=== PATIENT | female | born 1995 | race Caucasian/White ===

== ENCOUNTER 2019-07-17 14:47 | Outpatient (CLI) | payer MEDICAID, SELFPAY ==
--- NOTE | 2019-07-17 14:58 | US_ITS ---
WS: [id number] OB ultrasound, 07/17/2019 Clinical Data: GROWTH CHECK SUPERVISION OF NORMAL FIRST PREG 3RD TRIMESTER Comparison: OB ultrasound, 04/10/2019. Findings: There is a single intrauterine in the vertex presentation. The placenta is Anterior and gra de 0. There is a normal amount of amnionic fluid. The heart rate is 141 beats per minute. Measurements of growth and development: BPD: 8.6 cm HC: 32.4 cm AC: 31.6 cm FL: 6.6 cm The estimated weight is 2610 or approximately 5 lbs. 12 oz. The estimated gestational age is 35 w2d with an JOSELUIS of approximately 08/19/2019. US/[place] [id number] Impression: 1. Single intrauterine in vertex presentation. 2. Estimated gestational age 35w2d with an JOSELUIS of 08/19/2019. 3. heart rate 141 beats per minute.
== END 2019-07-17 14:48 | disposition home or self-care (01) ==
PROVIDERS: Family Provider Internal Medicine; PCP Internal Medicine; Visit Provider Family Medicine
DX: Z34.03 Encounter for supervision of normal first pregnancy, third trimester (principal)
CPT/HCPCS: 76816

== ENCOUNTER 2019-08-12 10:55 | Outpatient (CLI) | payer MEDICAID, SELFPAY ==
[2019-08-12 11:41] VITALS: BMI 41.3
[2019-08-12 12:20] LABS: Add Urine Microscopic? NO
[2019-08-12 12:33] LABS: Bilirubin Urine Neg (NEGATIVE); Blood Urine Neg (Negative); Glucose Urine UA Norm (Normal); Ketones Urine Negative (Negative); Leukocyte Esterase Urine Negative (Negative); Nitrate Urine Negative (Negative); Protein Urine Neg (Negative); Specific Gravity, Urine 1.005 (1.005-1.030); Urine Appearance Clear (CLEAR); Urine Color Straw (Yellow); Urobilinogen Urine Norm (Negative); pH Urine 7 (5-7)
[2019-08-12 12:53] LABS: Urine Creatinine 35 mg/dL (28-217); Urine Protein Random 11 mg/dL
[2019-08-12 13:06] LABS: Basophils % 0.2 %; Eosinophils % 0.5 %; Hematocrit 34.3 % (37.0-47.0); Lymphocytes # 1.7 10^3/uL (0.8-4.8); Lymphocytes % 19.2 %; Mean Corpuscular HGB Conc 32.1 g/dL (30.0-36.0); Mean Corpuscular Hemoglobin 31.3 pg (28.0-34.0); Mean Corpuscular Volume 97.7 fL (81-99); Mean Platelet Volume 10.7 fL (7.4-10.4); Monocytes # 0.5 10^3/uL (0.2-0.9); Monocytes % 5.8 %; Neutrophils # 6.4 10^3/uL (1.8-7.7); Neutrophils % 73.5 %; Nucleated Red Blood Cells % 0 %; Platelet Count 264 10^3/cmm (130-400); Red Blood Count 3.51 10^6/uL (4.1-5.3); Red Cell Distribution Width 13.3 % (12.1-15.1); White Blood Count 8.7 10^3/uL (4.0-10.0)
[2019-08-12 13:09] LABS: UPRO/UCREAT Ratio 0.31 mg/mg CR
[2019-08-12 13:37] LABS: Alanine Aminotransferase 10 U/L (0-33); Albumin Level 3.1 g/dL (3.5-5.2); Alkaline Phosphatase 103 IU/L (35-105); Anion Gap 19.1 (5-19); Aspartate Amino Transferase 15 U/L (0-32); Blood Urea Nitrogen 6 mg/dL (6-20); Calcium 9.5 mg/dL (8.5-10.5); Carbon Dioxide 21 mmol/L (22-29); Chloride 102 mmol/L (98-107); Globulin 3.6 g/dL (1.3-4.6); Glomerular Filtration Rate 196.1 mL/min (90-130); Glucose 80 mg/dL (65-115); Potassium 4.1 mmol/L (3.5-5.1); Sodium 138 mmol/L (136-145); Total Bilirubin 0.2 mg/dL (0.15-1.2); Total Protein 6.7 g/dL (6.6-8.7); Uric Acid 6.5 mg/dL (2.4-5.7)
== END 2019-08-12 13:55 | disposition home or self-care (01) ==
PROVIDERS: Family Provider Internal Medicine; PCP Internal Medicine; Visit Provider Family Medicine
DX: O16.9 Unspecified maternal hypertension, unspecified trimester (principal)
CPT/HCPCS: 59025; 80053; 81003; 82570; 84156; 84550; 85025; 99211

== ENCOUNTER 2019-08-13 13:52 | Outpatient (CLI) | payer MEDICAID, SELFPAY ==
[2019-08-13 14:33] LABS: Total Volume, Urine 1550 mL
[2019-08-13 15:01] LABS: Total Protein 24 Hour Urine 299.2 mg/24HR (0-150); Urine Total Protein 24 Hour 19.3 mg/dL (0-150)
== END 2019-08-13 13:53 | disposition home or self-care (01) ==
PROVIDERS: Family Provider Internal Medicine; PCP Internal Medicine; Visit Provider Family Medicine
DX: Z01.89 Encounter for other specified special examinations (principal)
CPT/HCPCS: 84156

== ENCOUNTER 2019-08-13 16:46 | Inpatient (IN) | payer MEDICAID, SELFPAY ==
[2019-08-13] VITALS (17 sets, daily range): BP systolic 118–160; BP diastolic 65–94; PULSE 85–124; RESP 18–20; TEMP 36.8–37.2; BMI 41.8
[2019-08-13] MEDS: miSOPROStol 100 mcg tablet 25 MCG VAGINAL (17:57)
[2019-08-13 18:04] LABS: Basophils % 0.2 %; Eosinophils % 0.3 %; Hematocrit 32.5 % (37.0-47.0); Hemoglobin 10.8 g/dL (11.5-15.3); Lymphocytes # 1.9 10^3/uL (0.8-4.8); Lymphocytes % 20.8 %; Mean Corpuscular HGB Conc 33.2 g/dL (30.0-36.0); Mean Corpuscular Hemoglobin 31.7 pg (28.0-34.0); Mean Corpuscular Volume 95.3 fL (81-99); Mean Platelet Volume 10.8 fL (7.4-10.4); Monocytes # 0.4 10^3/uL (0.2-0.9); Monocytes % 4.7 %; Neutrophils # 6.7 10^3/uL (1.8-7.7); Neutrophils % 73.1 %; Nucleated Red Blood Cells % 0 %; Platelet Count 307 10^3/cmm (130-400); Red Blood Count 3.41 10^6/uL (4.1-5.3); Red Cell Distribution Width 13.2 % (12.1-15.1); White Blood Count 9.1 10^3/uL (4.0-10.0)
--- NOTE | 2019-08-13 18:21 | P.HP_ITS ---
Providers/Chief Complaint Admitting Physician: Roxy Severino MD Primary Care Provider: Mary Cary MD Chief Complaint: INDUCTION OF LABOR HPI EMERGENCY MEDICINE PHYSICIAN ASSISTANT History of Present Illness Joelle Harden is a 24 year old female 1 para 0 with an EDC of 08/26/2019 as determined by sure last menstrual period of 11/19/2018 and confirmed by second trimester ultrasound. She presents at 38-1/7-week gestation for cervical ripening and induction of labor secondary to gestational hypertension. Patient had an elevated blood pressure reading in the 130s over 80s during her visit on 08/12/2019. This reading was over 20 points higher systolical ly and 14 points higher diastolically than it had been at the last visit and was the highest reading she had had throughout her . We repeated the reading at the end of the appointment and got a slightly higher number diastolically with the systolic reading still being in the 130s. At that time we sent her over to the OB department for further evaluation including preeclamptic blood work, a nonstress test and a spot urine protein to creatinine ratio. That ratio was 0.31 which led to collection of a 24-hour urine. She was set for a repeat nonstress test and blood pressure readings here in the OB department the morning of 08/14/2019, but her 24-hour urine result obtained this afternoon was 299.2. Upon receipt of this 24-hour urine value, we contacted patient and had her proceed to the OB department for induction of labor. Patient has remained asymptomatic. Present Details : 1 Para: 0 Date of Last Menstrual Period: 11/19/18 Calculated Date of Delivery: 08/26/19 Gestational Age Based on Last Menstrual Period: 38 Dating criteria OB: LMP confirmed by 2nd trimester US care: good care Ultrasounds: normal mid trimester US Obstetrical complications: gestational hypertension and other (Abnormal glucose tolerance testing in (1 abnormal value on 3-hour GTT, close to 2 abnormal values)) Other Details: Group B strep positive status, anemia of , obesity complicating , subchorionic hemorrhage in first trimester requiring RhoGam administration at that time Review of Systems Const: Denies: fever Eyes: Denies: change in vision or blind spots Card: Denies: chest pain or edema Resp: Denies: shortness of breath GI: Denies: abdominal pain, nausea or vomiting : Denies: vaginal bleeding Skin/Breast: Denies: yellow skin Neuro: Denies: headache Psych: Reports: anxiety Medications/Allergies Allergies Allergy/AdvReac Type Severity Reaction Status Date / Time No Known Allergies Allergy Verified 08/12/19 11:44 [facility] EMERGENCY MEDICINE PHYSICIAN ASSISTANT Statuses (acute, chronic, etc) shown below reflect problem list status as previously entered and may not be historically accurate Medical History (Updated 08/13/19 @ 19:01 by Roxy Severino MD) Anxiety Depression Subchorionic hemorrhage in first trimester Surgical History (Updated 08/13/19 @ 18:37 by Roxy Severino MD) H/O wisdom tooth extraction Family History (Updated 08/13/19 @ 18:40 by Roxy Severino MD) Father Psychiatric illness Depression Mother Psychiatric illness Depression and anxiety Sister Psychiatric illness Depression and anxiety Grandmother Psychiatric illness Anxiety Social History (Updated 08/13/19 @ 18:43 by Roxy Severino MD) Smoking and tobacco status: never smoked Second hand smoke exposure: No Alcohol intake: former Former alcohol use details: Occasional intake prior to , none during Substance/Drug Use: never Adopted: No Caregiver/support person: Yes Lives independently: Yes Household members: significant other Marital status: Single Number of children: 0 Number of grandchildren: 0 Highest education level completed: GED or Equivalent Current occupational status: employed 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 There are no contractions. For complete physical examination please refer to patient's record. Const: COMMON NORMALS: no apparent distress, oriented x3, healthy appearing, alert and well nourished GENERAL APPEARANCE: cooperative, comfortable, well developed and anxious : MANUAL OB EXAM: dilated (2-1/2 to 3 cm dilated), effaced (50 to 60% effaced), station high (-3 station) and other (Vertex) Extremity: COMMON NORMALS: no clubbing, cyanosis or edema Neuro: COMMON NORMALS: oriented x3, no focal motor deficits, no sensory deficits noted and deep tendon reflexes 2+ bilaterally (No clonus noted bilaterally) SENSORIUM/ORIENTATION: Yes alert Psych: COMMON NORMALS: mental status grossly normal, thought process normal, cooperative, affect normal and speech normal ATTITUDE: Yes engaged SPEECH: Yes normal speech MOOD & AFFECT: Yes anxious THOUGHT PROCESS: normal thought process INSIGHT: insight good JUDGEMENT: judgment good Skin: COMMON NORMALS: no jaundice Data : 08/13/19 17:20 Other Labs: Blood type: O- Antibody screen: Negative Hemoglobin: Initially 12.2, 28-week recheck 10.1 Urine culture: Negative Hepatitis B surface antigen: Negative RPR: Negative Hepatitis C antibody: Negative Rubella: Immune HIV screen: Negative Pap: Normal GC/Chlamydia: Negative/negative Quad screen: Negative 1 hour GTT: 170 3-hour GTT: Fasting of 94, 1 hour 181, 2-hour 151, 3-hour 108 Group B strep screen: Positive A&P Assessment and plan (1) Encounter for induction of labor: Secondary to gestational hypertension? We discussed Cytotec as a cervical ripening agent, with its advantages and potential side effects. We also discussed Pitocin should we switch to that later. Status: Acute Code(s): Z34.90 - Encounter for supervision of normal , unspecified, unspecified trimester (2) 38 weeks gestation of : Status: Acute Code(s): Z3A.38 - 38 weeks gestation of (3) Gestational hypertension affecting first : Patient had preeclamptic labs and 24-hour urine. There is no evidence of severe features, and patient is asymptomatic. We discussed the spectrum of gestational hypertension including preeclampsia, preeclampsia with severe features and eclampsia. We discussed the role of magnesium should we need to begin that. We also discussed blood pressure parameters and the possibility of this diagnosis lingering and worsening into the period. Status: Acute Code(s): O13.9 - Gestational [-induced] hypertension without significant proteinuria, unspecified trimester (4) Anemia affecting , antepartum: Patient has been on iron in addition to her vitamins. Status: Acute Code(s): O99.019 - Anemia complicating , unspecified trimester (5) Group B Streptococcus carrier state affecting : We will begin antibiotics per the group B strep protocol with either spontaneous rupture of membranes or with cervical change. Patient is aware that baby will be observed for up to 48 hours with intervention as needed depending upon clinical picture and adequacy of antibiotic prophylaxis. Status: Acute Code(s): O99.820 - Streptococcus B carrier state complicating (6) Abnormal glucose tolerance test (GTT) during , antepartum: Patient has maintained a diet consistent with diabetic features since she had her 3-hour glucose tolerance test. Status: Acute Code(s): O99.810 - Abnormal glucose complicating (7) Obesity affecting , antepartum: Patient has done pretty well with her weight throughout this . Status: Acute Code(s): O99.210 - Obesity complicating , unspecified trimester Additional A&P Information Patient does have an Rh factor negative status and did receive RhoGam with her subchorionic hemorrhage in the first trimester and then again at the routine time late second trimester early third trimester. We will obtain cord blood for cord blood profile upon delivery. Attestations Medical Necessity Statement*: As patient has gestational hypertension and has been admitted for induction of labor at 38 weeks gestation and has not yet delivered, she will require continued inpatient hospitalization. Coding Level of Care Code Acute Copier Technician for Chg Fwd Exam Problem Focused Diagnoses Encounter for induction of labor Z34.90 38 weeks gestation of Z3A.38 Gestational hypertension affecting first O13.9 Anemia affecting , antepartum O99.019 Group B Streptococcus carrier state affecting O99.820 Abnormal glucose tolerance test (GTT) during , antepartum O99.810 Obesity affecting , antepartum O99.210
[2019-08-13] MEDS: lactated ringers 1,000 ML 999 ML IV (22:33)
[2019-08-13] MEDS: ampicillin 2,000 MG in sodium chloride 0.9% (plus) 50 ML 100 MG IV (22:33)
[2019-08-13] MEDS: oxytocin 30 UNIT/500 ML BAG 600 UNIT IV (23:05)
[2019-08-13] MEDS: lidocaine 2% INJ 20 mL INJECTION (23:09)
[2019-08-14] VITALS (14 sets, daily range): BP systolic 114–149; BP diastolic 56–95; PULSE 72–118; RESP 16–18; TEMP 36.7–37.3
--- NOTE | 2019-08-14 00:20 | PM.DELIVERY ---
 Delivery Note: Date of delivery: August 14, 2019 Pre-Delivery Course: Patient arrived the evening of 08/13/2019 in the 1700-hour for cervical ripening and induction of labor at 38-1/7 weeks gestation secondary to gestational hypertension. When patient arrived she was not jaylen and she was already 2-1/2 to 3 cm dilated, 50 to 60% effaced, -3 station and vertex. She received 1 dose of Cytotec and began jaylen every 1 to 2 minutes with increasing intensity. She rated her pain as fairly minimal until it was 4 hours into that dose and time for cervical exam to evaluate her progress. At that check, which was at 10:11 PM, she was found to be 6 cm dilated and 90% effaced and -1 station. Group B strep protocol was begun immediately. At that time patient also requested an epidural. Preparations were made for that as well. However, just 20 minutes later, at 10:31 PM, she had only an anterior rim of cervix remaining. At this point we began preparation for delivery. We will leave that she experienced spontaneous rupture of membranes at around 2241. Fluid was clear and appeared to be of moderate amount. Patient had just an anterior rim of cervix remaining and gently pushed so that she could be a little more comfortable for a few pushes starting at 2252. Then she was completely dilated at 2255. Delivery: She had begun her gentle pushing at 2252 with manual support of the anterior rim. At 2255 she was completely dilated and after just 9 minutes total of pushing she delivered a viable female infant at 2301. Head was straight OA. Bulb suctioning was done upon delivery of baby's head there was a nuchal cord x1 which was loose and easily manually reduced on the perineum. Bulb suctioning was then done upon delivery of the baby's body. There was no shoulder dystocia. Baby was placed on maternal abdomen while cord was clamped by myself after approximately 30 seconds and was cut by the father the baby. Cord blood was obtained. Gentle traction was placed on the cord, and intravenous Pitocin was begun in routine doses. Placenta was delivered intact at 2305 and appeared normal. There was terminal meconium noted, however the placenta was not meconium stained and neither was her fluid. Fundal massage resulted in a firm uterus, and perineum and cervix were inspected and we found a second-degree perineal laceration which extended to involve the left labia. The laceration was repaired in 2 stages. The perineal laceration which had extended from the distal midline vagina was first repaired with 2-0 chromic suture in standard 3 layer fashion after a 2% lidocaine local of approximately 2 mL. Next, the left labial laceration was repaired with a running baseball stitch after a 1 mL lidocaine local. Patient experienced only one blood pressure which was above 160 systolic, and that was during her second stage of labor which was completely natural and without anesthesia. The blood pressure elevation was not sustained, and patient remained asymptomatic. Post-Delivery Status: Mother and baby were stable. Estimated blood loss 250 mL. Baby had Apgars of 9 at 1 minute and 9 at 5 minutes and weighed 7 pounds 6 ounces and was 19-3/4 inches in length. A&P Assessment and plan (1) Encounter for induction of labor: Status: Acute Code(s): Z34.90 - Encounter for supervision of normal , unspecified, unspecified trimester (2) 38 weeks gestation of : Status: Acute Code(s): Z3A.38 - 38 weeks gestation of (3) Gestational hypertension affecting first : We will continue to monitor her blood pressure. Status: Acute Code(s): O13.9 - Gestational [-induced] hypertension without significant proteinuria, unspecified trimester (4) Anemia affecting , antepartum: Status: Acute Code(s): O99.019 - Anemia complicating , unspecified trimester (5) Group B Streptococcus carrier state affecting : Status: Acute Code(s): O99.820 - Streptococcus B carrier state complicating (6) Abnormal glucose tolerance test (GTT) during , antepartum: Status: Acute Code(s): O99.810 - Abnormal glucose complicating (7) Obesity affecting , antepartum: Status: Acute Code(s): O99.210 - Obesity complicating , unspecified trimester (8) Spontaneous rupture of membranes: Status: Acute (9) Normal vaginal delivery of first : Routine vaginal delivery orders Status: Acute Code(s): O80 - Encounter for full-term uncomplicated delivery (10) Labor, precipitous, delivered: Status: Acute Code(s): O62.3 - Precipitate labor (11) Perineal laceration involving labia: Status: Acute Code(s): S31.41XA - Laceration without foreign body of vagina and vulva, initial encounter Coding Level of Care Code Acute Share Dairy Farmer for Chg Fwd Diagnoses Encounter for induction of labor Z34.90 38 weeks gestation of Z3A.38 Gestational hypertension affecting first O13.9 Anemia affecting , antepartum O99.019 Group B Streptococcus carrier state affecting O99.820 Abnormal glucose tolerance test (GTT) during , antepartum O99.810 Obesity affecting , antepartum O99.210 Spontaneous rupture of membranes Normal vaginal delivery of first O80 Labor, precipitous, delivered O62.3 Perineal laceration involving labia S31.41XA
--- NOTE | 2019-08-14 07:28 | P.PN_ITS ---
LABEL SEWER Subjective Subjective: Interval history: Patient states that she is having some burning in the area of her laceration and stitches but that her bleeding is minimal. She does experience some cramping while breast-feeding. Post /CS: Patient comments OB post-: pain well controlled, incisional pain and tolerating diet [place] baby status: doing well and nursing well [place] feeding status: exclusively breast feeding Other Post-Op: Subjective SMALL STOCK FACER Post-Op: patient reports feeling better Vitals/I&O/Wt Last Vital Signs Temp 98.3 F 08/14/19 07:00 Pulse 116 H 08/14/19 07:00 Resp 18 08/14/19 07:00 BP 132/87 08/14/19 07:00 08/13/19 08/14/19 08/14/19 22:59 06:59 14:59 Intake Total 666.05 / 666.05 Output Total 200 / 200 Balance 466.05 / 466.05 Weight last 48 hrs Weight 229 lb Physical Exam Const: COMMON NORMALS: no apparent distress, oriented x3, healthy appearing, alert and well nourished Resp: COMMON NORMALS: normal respiratory effort and clear to auscultation bilaterally AUSCULTATION: clear to auscultation bilaterally Cardio: COMMON NORMALS: regular rate, regular rhythm, S1 normal heart sound and S2 normal heart sound; negative for no murmurs RATE: regular rate RHYTHM: regular rhythm HEART SOUNDS: S1 normal and S2 normal : UTERUS PALPATION: Yes other OB (Fundus firm and just beneath umbilicus, no ntender) Extremity: COMMON NORMALS: no pedal edema Neuro: COMMON NORMALS: oriented x3 SENSORIUM/ORIENTATION: Yes alert Psych: COMMON NORMALS: mental status grossly normal, thought process normal, cooperative, affect normal, speech normal and activity/motor behavior normal SPEECH: Yes normal speech THOUGHT PROCESS: normal thought process Data : 08/13/19 17:20 A&P Assessment and plan (1) Normal vaginal delivery of first : Continue routine orders Status: Acute Code(s): O80 - Encounter for full-term uncomplicated delivery (2) Labor, precipitous, delivered: Status: Acute Code(s): O62.3 - Precipitate labor (3) Perineal laceration involving labia: Continue routine orders Status: Acute Code(s): S31.41XA - Laceration without foreign body of vagina and vulva, initial encounter (4) Anemia affecting , antepartum: Routine scheduled CBC pending? May be why she is slightly tachycardic. Status: Acute Code(s): O99.019 - Anemia complicating , unspecified trimester (5) Gestational hypertension affecting first : Blood pressures have been great, and patient has remained asymptomatic. Status: Acute Code(s): O13.9 - Gestational [-induced] hypertension without significant proteinuria, unspecified trimester (6) 38 weeks gestation of : Status: Acute Code(s): Z3A.38 - 38 weeks gestation of Attestations Medical Necessity Statement*: As patient delivered late last night and should stay at least 24 hours we will plan for her discharge the morning of 08/15/2019. 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
[2019-08-14] MEDS: prenatal vitamin Capsule 1 CAP PO (09:11)
[2019-08-14] MEDS: docusate sodium 100 mg Capsule PO ×2 (09:11→18:55)
[2019-08-14 12:18] LABS: Hematocrit 26.8 % (37.0-47.0); Hemoglobin 8.8 g/dL (11.5-15.3); Mean Corpuscular HGB Conc 32.8 g/dL (30.0-36.0); Mean Corpuscular Hemoglobin 30.9 pg (28.0-34.0); Mean Platelet Volume 10.6 fL (7.4-10.4); Platelet Count 273 10^3/cmm (130-400); Red Blood Count 2.85 10^6/uL (4.1-5.3); Red Cell Distribution Width 13.2 % (12.1-15.1); White Blood Count 12.2 10^3/uL (4.0-10.0)
[2019-08-15 04:30] VITALS: BP 124/83; PULSE 88; RESP 16; TEMP 36.7
--- NOTE | 2019-08-15 07:40 | P.DS_ITS ---
Discharge Providers ASSEMBLY MACHINE TOOL SETTER Date of Admission: 08/13/19 16:46 Date of Discharge: 08/15/19 Attending Provider at Admission: Roxy Severino MD Attending Provider at Discharge: Roxy Severino MD Primary Care Provider: Mary Cary MD Diagnoses at Discharge Discharge Diagnosis (1) Normal vaginal delivery of first : Status: Acute (2) Labor, precipitous, delivered: Status: Acute (3) Perineal laceration involving labia: Status: Acute Problem details: Status post repair (4) Anemia affecting , antepartum: Status: Acute (5) Gestational hypertension affecting first : Status: Acute (6) 38 weeks gestation of : Status: Acute (7) Obesity affecting , antepartum: Status: Acute (8) Abnormal glucose tolerance test (GTT) during , antepartum: Status: Acute (9) Group B Streptococcus carrier state affecting : Status: Acute (10) Encounter for induction of labor: Status: Acute (11) Spontaneous rupture of membranes: Status: Acute Reason for Visit Reason for Visit: Reason For Visit: INDUCTION OF LABOR Hospital Course Hospital Course: Patient arrived in the 1700-hour of 08/13/2019 for cervical ripening and induction of labor secondary to gestational hypertension at 38-1/7 weeks gestation. She received 1 dose of Cytotec and delivered precipitously approximately 4 hours and 45 minutes later. She delivered without anesthesia and was in the process of receiving antibiotics per the group B strep protocol but was not able to receive adequate prophylaxis secondary to the precipitous nature of her labor. However, spontaneous rupture of membranes did not occur until 20 minutes prior to the delivery, so there was minimal exposure. Baby had Apgars of 9 at 1 minute and 9 at 5 minutes and weighed 7 pounds 6 ounces. Jaziel moraes sustained a midline distal vaginal laceration extending onto the perineum as well as up into the left medial labia. She underwent repair of the lacerations. day 1 was fairly uneventful and day 2 she is ready for discharge. Discharge Summary: She would like to consider her contraceptive options but knows that abstinence is important for the first 6 weeks postdelivery given risk for infection. She also knows that gestational hypertension can continue for 1 to 2 months , and so we will keep a close eye on symptoms and on her blood pressure. She states that she has vitamins at home and can get a hold of ibuprofen. Information Peripartum Data: Delivery Method: Vaginal Laceration description: Perineal - 2nd Degree (Repaired; also left labial laceration which was repaired) complications: none Physical Exam Const: COMMON NORMALS: no apparent distress, oriented x3, no limitations, healthy appearing, alert and well nourished Resp: COMMON NORMALS: normal respiratory effort and clear to auscultation bilaterally AUSCULTATION: clear to auscultation bilaterally Cardio: COMMON NORMALS: regular rate, regular rhythm and no murmurs RATE: regular rate RHYTHM: regular rhythm : UTERUS PALPATION: Yes other OB (Fundus is firm, nontender and just below the umbilicus) Extremity: COMMON NORMALS: no clubbing, cyanosis or edema Neuro: COMMON NORMALS: oriented x3 SENSORIUM/ORIENTATION: Yes alert Psych: COMMON NORMALS: mental status grossly normal, thought process normal, affect normal, speech normal and activity/motor behavior normal SPEECH: Yes normal speech THOUGHT PROCESS: normal thought process Discharge Data Data Completed and Pending: Labs from last 24 hours 08/14/19 08/14/19 08/13/19 12:04 12:04 17:20 WBC 12.2 H RBC 2.85 L Hgb 8.8 L Hct 26.8 L MCV 94.0 MCH 30.9 MCHC 32.8 RDW 13.2 Plt Count 273 MPV 10.6 H Blood Type O Negative Antibody Screen Positive Antibody Identific ation Anti-D Screen Negative Vitals: Last Vital Signs Temp 98.1 F 08/15/19 04:30 Pulse 88 08/15/19 04:30 Resp 16 08/15/19 04:30 BP 124/83 08/15/19 04:30 Discharge Plan Discharge Patient Disposition: Home, Self-Care Condition: Stable Prescriptions: Continued Vitamin 1 tab PO DAILY RF: 0 Iron (ferrous sulfate) 1 tab PO DAILY RF: 0 Discharge Orders: Discharge Order (Routine); Ordered 08/15/19 Ordered By: Roxy Severino Referrals: Roxy Severino MD [Hospitalist] - 6 Weeks (We will do blood pressure check at babies visit either August 18 or Monday, August 19, 2019 followed by 6-week visit.) Discharge Diet: Usual diet Discharge Activity: Resume usual activity Discharge Attestations ASSEMBLY MACHINE TOOL SETTER Time Spent in Discharge Care*: greater than 30 min Specific Discharge Activities: Specific discharge activities: educating patient, documenting/other paperwork and evaluating patient/reviewing data Coding Level of Care Code Acute Stock Clerk for Chg Fwd Diagnoses Normal vaginal delivery of first O80 Labor, precipitous, delivered O62.3 Perineal laceration involving labia S31.41XA Anemia affecting , antepartum O99.019 Gestational hypertension affecting first O13.9 38 weeks gestation of Z3A.38 Obesity affecting , antepartum O99.210 Abnormal glucose tolerance test (GTT) during , antepartum O99.810 Group B Streptococcus carrier state affecting O99.820 Encounter for induction of labor Z34.90 Spontaneous rupture of membranes
[2019-08-15] MEDS: docusate sodium 100 mg Capsule PO (08:48)
[2019-08-15] MEDS: prenatal vitamin Capsule 1 CAP PO (08:48)
[2019-08-15 10:00] VITALS: BP 118/75; PULSE 101; RESP 18; TEMP 36.8; O2SAT 98
[2019-08-15 17:16] VITALS: BP 120/68; PULSE 90; RESP 18; TEMP 36.7; O2SAT 98
[2019-08-15 18:00] VITALS: BP 125/68; PULSE 70; RESP 18; TEMP 36.8; O2SAT 98
[2019-08-15 18:53] VITALS: BP 125/68; PULSE 70; RESP 18; TEMP 36.8; O2SAT 98
== END 2019-08-15 18:53 | disposition home or self-care (01) | DRG 807 ==
PROVIDERS: Admitting Provider Family Medicine; Family Provider Internal Medicine; PCP Internal Medicine; Visit Provider Family Medicine
DX: O13.4 Gestational [pregnancy-induced] hypertension without significant proteinuria, complicating childbirth (principal); Z37.0 Single live birth; O99.824 Streptococcus B carrier state complicating childbirth; Z3A.38 38 weeks gestation of pregnancy; O99.214 Obesity complicating childbirth; O99.02 Anemia complicating childbirth; D64.9 Anemia, unspecified; O70.1 Second degree perineal laceration during delivery; O69.81X0 Labor and delivery complicated by cord around neck, without compression, not applicable or unspecified
CPT/HCPCS: 12345; 36415; 59025; 59409; 80500; 85025; 85027; 86850; 86900; 90384; 98960; J0290; J2001